=== PATIENT | female | born 1995 | race Caucasian/White ===

== ENCOUNTER 2021-07-23 14:06 | Emergency (ER) | payer OTHER, SELFPAY ==
--- NOTE | 2021-07-23 14:18 | ED.URI ---
HPI - URI/Sore Throat General Chief Complaint: Upper Respiratory Infection Stated Complaint: Cough,Body Aches,Congestion Time Seen by Provider: 07/23/21 14:08 Source: patient and RN notes reviewed History of Present Illness HPI Narrative: Patient is a 25-year-old female who presents the urgent care with complaints of cough, congestion, body aches, sore throat and fever. Patient states her symptoms started yesterday and she has had mild resolution with DayQuil. Patient denies of any known exposures to Covid, flu or strep. Patient has had the Covid vaccine. States that her has also been symptomatic since yesterday and neither have been tested for Covid. Denies of any shortness of breath, chest pain, nausea, vomiting. No other acute complaints. No acute distress noted. Patient read the plan of care. Some parts of this dictation were generated by voice recognition software and may contain typographical and/or grammatical inaccuracies. Related Data Home Medications Medication Instructions Recorded Confirmed No Home Medications 07/23/21 07/23/21 Allergies Allergy/AdvReac Type Severity Reaction Status Date / Time No Known Allergies Allergy Verified 07/23/21 14:27 Review of Systems Review of Systems: CONSTITUTIONAL: Reports a fever and fatigue EYES: Denies visual changes, redness, or discharge. ENT: Reports of sore throat, congestion, postnasal drainage CARDIOVASCULAR: Denies chest pain, palpitations, or edema. RESPIRATORY: Reports of cough without dyspnea GASTROINTESTINAL: Denies abdominal pain, nausea, vomiting, or diarrhea. GENITOURINARY: Denies dysuria or hematuria. SKIN: Denies rash or itching. MUSCULOSKELETAL: Denies back pain, joint pain. Reports of body aches NEUROLOGIC: Denies headache, numbness, or weakness. All other systems reviewed are negative, except as documented in HPI. PMFSH Comments At the time of my signature, I reviewed and agree with the nursing past medical, surgical, social, and family history. There is no relevant family history pertinent to the patient complaint. Exam Narrative: GENERAL: This is a well-nourished, well-developed patient, in no apparent distress. HEAD: normocephalic, atraumatic. EYES: PERRL. Sclera clear/white. Vision is grossly intact. EARS: External ears normal, auditory canals clear and without drainage, TMs normal without perforation. Hearing grossly intact. NOSE: External nose normal with no obvious nasal discharge, nares without redness, no rhinorrhea. THROAT: Mucous membranes moist. Moderate erythema noted posterior pharynx with moderate postnasal drainage without exudate or ulceration. NECK: Neck supple, non-tender without lymphadenopathy CARDIOVASCULAR: Regular rate and rhythm without murmurs, gallops, or rubs. RESPIRATORY: Clear to auscultation. Breath sounds equal bilaterally. No wheezes, rales, or rhonchi. SKIN: warm, intact with no suspicious lesions or rash, good texture and turgor. NEURO: awake, alert, and oriented to person, place and time. There were no obvious focal neurologic abnormalities. EXTREMITIES: No clubbing, cyanosis, or edema. Course Vital Signs Vital signs: Vital Signs Temperature 97.2 F L 07/23/21 14:19 Pulse Rate 92 07/23/21 14:19 Respiratory Rate 18 07/23/21 14:19 Blood Pressure 124/80 07/23/21 14:19 Pulse Oximetry 100 07/23/21 14:19 Temperature 97.2 F L 07/23/21 14:19 Pulse Rate 92 07/23/21 14:19 Respiratory Rate 18 07/23/21 14:19 Blood Pressure 124/80 07/23/21 14:19 Pulse Oximetry 100 07/23/21 14:19 Reviewed MDM - URI/Sore Throat MDM Narrative Medical decision making narrative: Reviewed lab results with the patient. She is aware that flu swab was negative. Strep swab was also negative. Educated patient on culture we will call within 72 hours if culture is positive and antibiotics are necessary. Symptoms are consistent with Covid and I would recommend staying quarantine until you get a neg
[2021-07-23 14:19] VITALS: BP 124/80; PULSE 92; RESP 18; TEMP 36.2; O2SAT 100
== END 2021-07-23 14:54 | disposition home or self-care (01) ==
PROVIDERS: Emergency Provider Nurse Practitioner Family
DX: B34.9 Viral infection, unspecified (principal); J02.9 Acute pharyngitis, unspecified; Z20.822 Contact with and (suspected) exposure to COVID-19
CPT/HCPCS: 87081; 87804; 87880; 99203; G0463